=== PATIENT | female | born 2000 ===

== ENCOUNTER 2022-07-27 00:50 | Emergency (ER) | payer BC ==
[~2022-07-27] VITALS: Ht 167.6 cm; Wt 80.3 kg
[~2022-07-27 00:50] MED LIST: ACET325UDC; ALBU90OI INH; AMOX50SU PO; ASTHMA MEDS; CODACEE120 PO; EPIN0.15 IM; HYDACE25S PR; IBUP100S; IBUP600 PO; PRED15SY PO
[2022-07-27 01:02] VITALS: BP 126/96
[2022-07-27] MEDS ORDERED: OXAYDO5 M1 PO (03:21)
== END 2022-07-27 04:00 | disposition home or self-care (01) ==
LOC: ER 00:50
DX: S82.65XA Nondisplaced fracture of lateral malleolus of left fibula, initial encounter for closed fracture (principal); X50.1XXA Overexertion from prolonged static or awkward postures, initial encounter; Z88.2 Allergy status to sulfonamides; J45.909 Unspecified asthma, uncomplicated
CPT/HCPCS: 29515; 73610; 96372-59; 99283-25; A9270; J1885